=== PATIENT | female | born 2000 | race African-American/Black ===

== ENCOUNTER 2022-06-06 14:29 | Emergency (ER) | payer OTHER, SELFPAY ==
--- NOTE | ~2022-06-06 | XR_ITS ---
EXAMINATION: XR LUMBOSACRAL SPINE CLINICAL INFORMATION: Back pain COMPARISON: None TECHNIQUE: Three views of the lumbosacral spine. FINDINGS: The vertebral bodies and posterior elements are normal. The disc spaces are preserved and the vertebral alignment is normal. The paraspinal soft tissues are normal. XR/XR lumbar spine 2-3V IMPRESSION: Unremarkable lumbar spine radiographs.
[2022-06-06 14:38] VITALS: BP 118/86; PULSE 75; RESP 18; TEMP 36.7; O2SAT 99; BMI 27.4
[2022-06-06] MEDS: Ibuprofen 600 MG TABLET PO (15:59)
[2022-06-06] MEDS: diazePAM 2 MG TABLET PO (17:35)
[2022-06-06] MEDS: predniSONE 20 MG TABLET 60 MG PO (17:35)
[2022-06-06] MEDS: oxyCODONE HCl Immed Release 5 MG TABLET PO (17:35)
--- NOTE | 2022-06-06 18:46 | ED.BACK ---
HPI - Back Pain/Injury General Chief Complaint: Back Pain/Injury Stated Complaint: sciatic nerve pain Time Seen by Provider: 06/06/22 17:08 Source: patient and family (Mother at bedside) Mode of arrival: ambulatory Limitations: no limitations History of Present Illness HPI Narrative: 21-year-old female with a past medical history of sciatica/muscle spasms who has been in therapy for the past 6 months presenting to the ED with mother at bedside with complaints of worsening back pain/pinching sensation radiating down to her bilateral buttocks for the past few hours which started while she was driving back from [place] to [place] a few days ago. She reports she has been taking [id number] medication no symptomatic relief. Mother reports that she has an MRI scheduled for 06/08/2022. She reports that when the pain increases she feels like she is going to have a bowel movement on herself although she is able to hold it and is not having any urinary or bowel incontinence or retention. She denies any fevers, chills, dizziness, headaches, neck pain/stiffness, trouble swallowing or breathing, chest pain or shortness of breath, dyspnea on exertion, orthopnea, palpitations paresthesias, flank pain, abdominal pain, black or bloody stools, nausea/vomiting, recent surgery or epidural procedure, recent spinal tap, recent falls or trauma, history of IV drug use, saddle anesthesia, rashes, dysuria, hematuria, abnormal vaginal discharge or any other symptoms complaints or concerns at this time. MD elicited complaint: back pain and back injury Pertinent past history: prior back pain Onset (ago): day(s) (Past few days worse today) Timing: constant and progressively worsening Severity: severe Pain scale (0-10): 10 Similar Symptoms Previously: Yes Quality: sharp, stabbing, aching and spasming Location: lumbar spine Radiation: buttocks Exacerbating factors: supine positioning, sitting upright, walking and lifting Relieving factors: other (Using all 4 limbs to support herself) Context: unknown Associated symptoms: denies other symptoms Treatments prior to arrival: other (See above) Related Data Previous Rx's Medication Instructions Recorded diazepam 2 mg tablet (Valium) 2 mg PO TID PRN muscle spasm #14 06/06/22 tabs naproxen 500 mg tablet 500 mg PO BID PRN pain #14 tabs 06/06/22 oxycodone 5 mg tablet 5 mg PO Q6H PRN pain #14 tabs 06/06/22 prednisone 20 mg tablet 40 mg PO DAILY rash 5 days #10 tabs 06/06/22 Allergies Allergy/AdvReac Type Severity Reaction Status Date / Time No Known Allergies Allergy Verified 06/06/22 14:37 Review of Systems Review of Systems: Constitutional : No trauma, No Weight loss, No Fever, No Chills, ENT/Mouth : No Hearing loss, No Ear Pain, No Nasal Congestion, No Sinus Pain, No Hoarseness, No sore throat, No Rhinorrhea, No Swallowing Difficulty Cardiovascular : No Chest Pain, No SOB Respiratory : No Cough, No Dyspnea Gastrointestinal : No Nausea, No Vomiting, No Diarrhea, No abdominal Pain, No Hematochezia, No Melena Genitourinary : No Dysuria, No Urinary Frequency, No Hematuria, No Urinary or Bowel Incontinence/retention Musculoskeletal : + Back pain, No neck pain, No joint stiffness, No joint swelling Skin : No Skin Lesions, No rash or signs of infection Neuro : No Weakness, No radiation, No Numbness, No Paresthesias, No headache, no loss of bowel or bladder incontinence, no saddle anesthesia Denies history of IV drug usage. Yes all other systems are reviewed and are negative [facility] Past Medical History Attestation statement: The following information was validated with the patient. Source: old records reviewed, obtained from family and nursing notes reviewed Social History Social History Advance Directives: No Advance Directives Information Provided: No Physical Exam Vital Signs: Vital Signs: Last Vital Signs Temp 98.1 F 06/06/22 14:38 Pulse 75 06/06/22 14:38 Resp 18 06/06/22 14:38 BP 118/86 06/06/22 14:38 Pulse Ox 99 06/06/22 14:38 O2 Del Method 06/06/22 14:38 BMI result Body Mass Index 27.4 vital signs have been reviewed as normal and appeared to be correct. Blood pressure normal. Heart rate normal. Respiration rate normal. Temperature normal. Oxygen saturation normal. Appearance: Alert. Oriented X3. No acute distress. When I 1st walked into the patient's room patient is on all 4 extremities to support herself over the head of the bed reporting this is the most comfortable position. Although she is able to reposition herself so I can examine her. Head: Normal external exam. Normocephalic. Atraumatic. No Ramos signs noted. No raccoon eyes noted Eyes: PERRLA. EOMI. Conjunctiva and sclera normal. Eyelids normal. ENT: EAC normal. TM's Normal. Pharynx normal. Uvula midline. Moist mucous membranes. No trismus noted. No drooling noted. No muffled voice noted. Neck: Normal inspection. Neck supple. FROM. No adenopathy. Thyroid Normal. No meningeal signs. No neck mass noted. CVS: Normal heart rate and rhythm. Heart sound normal. No murmurs noted. Pulses normal throughout. Respiratory: No respiratory distress. Painless inspiration. Breath sounds normal. No wheezes/rales/rhonchi noted. Chest nontender. No accessory muscle usage noted or decreased air movement noted. Abdomen: Soft and nontender. Bowel sounds normal in all 4 quadrants. No distention noted. No organomegaly noted. No visible injury noted. Back: No CVA tenderness. Full range of motion noted. No obvious deformities, or edema. Mild para-spinal muscular tenderness from lumbar region to coccyx. Full ROM in back and lower extremities. 5/5 strength hip extension/flexion, abduction, adduction. Mild Lumbar pain with hip flexion against resistance. Straight leg raise test negative on right; Straight leg raise test negative on left; Reflexes normal ankle and knee bilaterally; EHL motor strength normal bilaterally. No rashes/lesion/induration/fluctuance or signs infection noted. Skin: Skin warm and dry. Normal skin color. Normal skin turgor. No rashes/lesions/lacerations noted. Extremities: No lower extremity edema. Extremities exhibit normal range of motion. Extremities nontender. Neuro: Oriented X 3. No motor deficit. No sensory deficit. Reflexes normal. Patient has a normal steady gait. Course Course Course Narrative: Pt c likely muscular pain, but could be herniated disc. Neuro exam shows no deficits. Not c/w AAA/epidural abscess/dissection.No high risk Hx (Incont, fever, immunosupp, recent surgery/LP, coag, signif trauma, wt loss, puls mass, hx/o Ca, TB, or IVDU) to warrant MRI/CT today. Not c/w Pyelo/UTI/kidney stone/spinal fx. Not cauda equina syndrome. Lumbar spine x-ray negative for any acute processes. DC c meds and f/u. MDM - Back Pain/Injury Medical Records Attestation: I reviewed the patient's medical records. Imaging Data Lumbar spine x-ray: Attestation: I personally reviewed and interpreted this imaging study as follows: Radiologist's impression: FINDINGS: The vertebral bodies and posterior elements are normal. The disc spaces are preserved and the vertebral alignment is normal. The paraspinal soft tissues are normal. XR/XR lumbar spine 2-3V IMPRESSION: Unremarkable lumbar spine radiographs. Discharge Plan Discharge Clinical Impression: Lumbar radiculopathy, Strain of lumbar region Patient Disposition: Home, Self-Care Instructions: Lumbar Radiculopathy (ED), Lower Back Exercises (ED) Prescriptions: New naproxen 500 mg tablet 500 mg PO BID PRN (Reason: pain) Qty: 14 0RF prednisone 20 mg tablet 40 mg PO DAILY 5 Days Qty: 10 0RF oxycodone 5 mg tablet 5 mg PO Q6H PRN (Reason: pain) Qty: 14 0RF Rx Instructions: Partial Fill upon patient request. diazepam [Valium] 2 mg tablet 2 mg PO TID PRN (Reason: muscle spasm) Qty: 14 0RF Referrals: Physician,Nonstaff [Primary Care Provider] - 1 week (your pcp) Stand Alone Forms: Work/School Release
== END 2022-06-06 19:05 | disposition home or self-care (01) ==
PROVIDERS: Emergency Provider Emergency Medicine
DX: M54.16 Radiculopathy, lumbar region (principal); S39.012A Strain of muscle, fascia and tendon of lower back, initial encounter; X58.XXXA Exposure to other specified factors, initial encounter; Y93.9 Activity, unspecified; Y92.9 Unspecified place or not applicable; Y99.9 Unspecified external cause status
CPT/HCPCS: 72100; 99283

== ENCOUNTER 2022-06-17 11:10 | Emergency (ER) | payer OTHER, SELFPAY ==
[2022-06-17 11:17] VITALS: BP 121/71; PULSE 74; RESP 18; TEMP 36.9; O2SAT 98; BMI 27.4
--- NOTE | 2022-06-17 11:49 | ED.BACK ---
HPI - Back Pain/Injury General Chief Complaint: Back Pain/Injury Stated Complaint: back pain Time Seen by Provider: 06/17/22 11:41 Source: patient Mode of arrival: wheelchair Limitations: no limitations History of Present Illness HPI Narrative: 21-year-old female with a past medical history of sciatica/muscle spasm who has been in therapy for the past 6 months presenting to the ED with complaints of acute on chronic back pain radiating to her bilateral lower extremities/buttocks for the past 3 weeks. She was seen here on 06/06/2022 by myself and was given Valium/oxycodone/NSAIDs and steroids and she reports moderate symptomatic relief when she was on all 4 medications although she ran out of her medication and she is in severe pain. She reports that she was supposed to get an MRI at the end of May although when she went to her appointment with the business process specialist they told her that it was an initial appointment and that they could order an MRI at that time although she would have to wait for the actual MRI. Her MRI is scheduled for this Wednesday on 06/19/2022. Then she has a follow-up appointment with the business process specialist on 06/23/2022. She also has called her primary care provider and her primary care provider told her that they cannot prescribe her any narcotics that she would have to go to the emergency department although she was not evaluated by her primary due to she did not make an appointment. I explained to her that she would have the make an appointment so her primary care provider can evaluate her and then prescribed medications that they will not just prescribed medications because she is asking for them. Otherwise she reports it is the same pain that she had when she came here few weeks ago. She denies any fevers, chills, dizziness, headaches, neck pain/stiffness, trouble swallowing or breathing, chest pain or shortness of breath, dyspnea on exertion, orthopnea, palpitations, paresthesias, flank pain, abdominal pain, black or bloody stools, nausea/vomiting, recent surgery or epidural procedure, recent spinal tap, recent falls or trauma, history of IV drug use, saddle anesthesias, rashes, dysuria, hematuria, abnormal vaginal discharge, urinary or bowel incontinence or retention or any other symptoms complaints or concerns at this time. MD elicited complaint: back pain Pertinent past history: prior back pain Onset (ago): week(s) (3 worsened past few days) Timing: constant and progressively worsening Severity: moderate Pain scale (0-10): 10 Quality: sharp, aching, spasming and throbbing Location: lumbar spine Radiation: buttocks, left upper leg, right upper leg, left leg below the knee and right leg below the knee Exacerbating factors: movement, sitting upright and lifting Relieving factors: none Associated symptoms: denies other symptoms Treatments prior to arrival: other (See above) Work related injury: No Related Data Previous Rx's Medication Instructions Recorded diazepam 2 mg tablet (Valium) 2 mg PO TID PRN muscle spasm #14 06/06/22 tabs naproxen 500 mg tablet 500 mg PO BID PRN pain #14 tabs 06/06/22 oxycodone 5 mg tablet 5 mg PO Q6H PRN pain #14 tabs 06/06/22 prednisone 20 mg tablet 40 mg PO DAILY rash 5 days #10 tabs 06/06/22 diazepam 5 mg tablet (Valium) 5 mg PO TID PRN muscle spasm #10 06/17/22 tabs ketorolac 10 mg tablet 10 mg PO Q8H PRN pain #14 tabs 06/17/22 oxycodone 5 mg tablet 5 mg PO Q6H PRN pain #10 tabs 06/17/22 prednisone 10 mg tablet 10 mg PO DAILY #36 tabs 06/17/22 Allergies Allergy/AdvReac Type Severity Reaction Status Date / Time latex Allergy Rash Verified 06/17/22 11:17 Review of Systems Review of Systems: Constitutional : No trauma, No Weight loss, No Fever, No Chills, ENT/Mouth : No Hearing loss, No Ear Pain, No Nasal Congestion, No Sinus Pain, No Hoarseness, No sore throat, No Rhinorrhea, No Swallowing Difficulty Cardiovascular : No Chest Pain, No SOB Respiratory : No Cough, No Dyspnea Gastrointestinal : No Nausea, No Vomiting, No Diarrhea, No abdominal Pain, No Hematochezia, No Melena Genitourinary : No Dysuria, No Urinary Frequency, No Hematuria, No Urinary or Bowel Incontinence/retention Musculoskeletal : + Back pain, No neck pain, No joint stiffness, No joint swelling Skin : No Skin Lesions, No rash or signs of infection Neuro : No Weakness, No radiation, No Numbness, No Paresthesias, No headache, no loss of bowel or bladder incontinence, no saddle anesthesia, Focal weakness, No radiation Denies history of IV drug usage. Yes all other systems are reviewed and are negative [facility] Past Medical History Attestation statement: The following information was validated with the patient. Source: old records reviewed and nursing notes reviewed Physical Exam Vital Signs: Vital Signs: Last Vital Signs Temp 98.4 F 06/17/22 11:17 Pulse 74 06/17/22 11:17 Resp 18 06/17/22 11:17 BP 121/71 06/17/22 11:17 Pulse Ox 98 06/17/22 11:17 O2 Del Method 06/17/22 11:17 BMI result Body Mass Index 27.4 vital signs have been reviewed as normal and appeared to be correct. Blood pressure normal. Heart rate normal. Respiration rate normal. Temperature normal. Oxygen saturation normal. Appearance: Alert. Oriented X3. No acute distress. Head: Normal external exam. Normocephalic. Atraumatic. No Ramos signs noted. No raccoon eyes noted Eyes: PERRLA. EOMI. Conjunctiva and sclera normal. Eyelids normal. ENT: EAC normal. TM's Normal. Pharynx normal. Uvula midline. Moist mucous membranes. No trismus noted. No drooling noted. No muffled voice noted. Neck: Normal inspection. Neck supple. FROM. No adenopathy. Thyroid Normal. No meningeal signs. No neck mass noted. CVS: Normal heart rate and rhythm. Heart sound normal. No murmurs noted. Pulses normal throughout. Respiratory: No respiratory distress. Painless inspiration. Breath sounds normal. No wheezes/rales/rhonchi noted. Chest nontender. No accessory muscle usage noted or decreased air movement noted. Abdomen: Soft and nontender. Bowel sounds normal in all 4 quadrants. No distention noted. No organomegaly noted. No visible injury noted. Back: No CVA tenderness. Full range of motion noted. No obvious deformities, or edema. Mild para-spinal muscular tenderness from lumbar region to coccyx. Full ROM in back and lower extremities. 5/5 strength hip extension/flexion, abduction, adduction. Mild Lumbar pain with hip flexion against resistance. Straight leg raise test negative on right; Straight leg raise test negative on left; Reflexes normal ankle and knee bilaterally; EHL motor strength normal bilaterally. No rashes/lesion/induration/fluctuance or signs infection noted. Skin: Skin warm and dry. Normal skin color. Normal skin turgor. No rashes/lesions/lacerations noted. Extremities: No lower extremity edema. Extremities exhibit normal range of motion. Extremities nontender. Neuro: Oriented X 3. No motor deficit. No sensory deficit. Reflexes normal. Patient has a normal steady gait. Course Course Course Narrative: Pt c likely muscular pain, but could be herniated disc. Neuro exam shows no deficits. Not c/w AAA/epidural abscess/dissection.No high risk Hx (Incont, fever, immunosupp, recent surgery/LP, coag, signif trauma, wt loss, puls mass, hx/o Ca, TB, or IVDU) to warrant MRI/CT today. Not c/w Pyelo/UTI/kidney stone/spinal fx. Not cauda equina syndrome. Imaging not currently indicated. I explained to the patient that she should follow-up with painter and decorator apprentice or her primary care provider to refer her for physical therapy. She reports she does have have her MRI this Wednesday on 06/19/2022 and follow-up with the business process specialist on 06/23/2022. I explained to her if this does not occur she should follow-up with her primary for further evaluation treatment and meds that she cannot continue coming to the emergency department for pain meds and steroids and she understands this therefore will DC with a short course today and instructions follow-up with PCP/pain management or her business process specialist. Patient understands agrees with this plan. MDM - Back Pain/Injury Medical Records Attestation: I reviewed the patient's medical records. Discharge Plan Discharge Clinical Impression: Strain of lumbar region, Lumbar radiculopathy Patient Disposition: Home, Self-Care Instructions: Lumbar Radiculopathy (ED), Lower Back Exercises (ED) Prescriptions: New ketorolac 10 mg tablet 10 mg PO Q8H PRN (Reason: pain) Qty: 14 0RF Rx Instructions: First dose given by IM and patient tolerated well diazepam [Valium] 5 mg tablet 5 mg PO TID PRN (Reason: muscle spasm) Qty: 10 0RF oxycodone 5 mg tablet 5 mg PO Q6H PRN (Reason: pain) Qty: 10 0RF Rx Instructions: Partial Fill upon patient request. prednisone 10 mg tablet 10 mg PO DAILY Qty: 36 0RF Rx Instructions: Take 8 tablets on day 1 then take 7 tablets on day 2 then take 6 tablets on day 3 then take 5 tablets on day 4 then take 4 tablets on day 5 then take 3 tablets on day 6 then take 2 tablets on day 7 then take 1 tablet on day 8 No Action naproxen 500 mg tablet 500 mg PO BID PRN (Reason: pain) Qty: 14 0RF prednisone 20 mg tablet 40 mg PO DAILY 5 Days Qty: 10 0RF diazepam [Valium] 2 mg tablet 2 mg PO TID PRN (Reason: muscle spasm) Qty: 14 0RF oxycodone 5 mg tablet 5 mg PO Q6H PRN (Reason: pain) Qty: 14 0RF Rx Instructions: Partial Fill upon patient request. Referrals: [facility] [Provider Group] (Call to make a follow-up appointment within 1-2 weeks) [facility] [Provider Group] - 1 week (Call to make a follow-up appointment within 1-2 weeks) [facility] [Provider Group] (Call to make a follow-up appointment within 1-2 weeks) Stand Alone Forms: Work/School Release Print Language: Cymraes
[2022-06-17] MEDS: Ketorolac Tromethamine 60 MG/2 ML VIAL IM (11:53)
== END 2022-06-17 12:24 | disposition home or self-care (01) ==
PROVIDERS: Emergency Provider Internal Medicine
DX: M54.16 Radiculopathy, lumbar region (principal); S39.012A Strain of muscle, fascia and tendon of lower back, initial encounter; X58.XXXA Exposure to other specified factors, initial encounter; Y93.9 Activity, unspecified; Y92.9 Unspecified place or not applicable; Y99.9 Unspecified external cause status
CPT/HCPCS: 96372; 99283; 99284; J1885

== ENCOUNTER → 2022-09-16 11:29 | Outpatient (BNVA) | payer OTHER, SELFPAY | PROVIDERS: Visit Provider Anesthesiology | DX: M47.816 Spondylosis without myelopathy or radiculopathy, lumbar region (principal); G89.4 Chronic pain syndrome | CPT/HCPCS: 99202 ==

== ENCOUNTER 2022-11-03 06:32 | Outpatient (REF) | payer SELFPAY ==
--- NOTE | ~2022-11-03 | FL_ITS ---
EXAMINATION: XR FLUOROSCOPY WITH IMAGES CLINICAL INFORMATION: M47.816 - Spondylosis without myelopathy or radiculopathy, lumbar region COMPARISON: Lumbar radiographs 06/06/2022 TECHNIQUE: Fluoroscopy Supervised By: Dr. Fred Cardona. Fluoroscopy Time: 0.6 minutes. Cumulative Dose: 10.5 mGy. DAP: 2.86 Gycm2. Images: 7. FINDINGS: There are spinal needles overlying the bilateral outer L3, L4, and L5 neural foramen. There is contrast seen in the respective nerve sheaths. Some early transforaminal epidural extension is suggested. No visible vascular communication. Vertebral jewelry piercing overlies mid lumbar region. FL/FL guidance in treatment room IMPRESSION: Fluoroscopy for pain management procedures.
[2022-11-03 15:11] LABS: UPreg QC Valid YES; Urine Pregnancy NEGATIVE (NEGATIVE)
== END 2022-11-03 06:33 | disposition home or self-care (01) ==
LOC: CF 06:32
PROVIDERS: Visit Provider Anesthesiology
DX: M47.816 Spondylosis without myelopathy or radiculopathy, lumbar region (principal); G89.4 Chronic pain syndrome; Z32.02 Encounter for pregnancy test, result negative
CPT/HCPCS: 64493; 64494; 81025

== ENCOUNTER → 2022-11-05 08:06 | Outpatient (BNVA) | payer OTHER, SELFPAY | PROVIDERS: PCP Hospitalist; Visit Provider Anesthesiology | DX: Z13.89 Encounter for screening for other disorder (principal) ==

== ENCOUNTER → 2022-12-14 08:43 | Outpatient (BNVA) | payer OTHER, SELFPAY | PROVIDERS: PCP Hospitalist; Visit Provider Anesthesiology | DX: Z13.89 Encounter for screening for other disorder (principal) ==

== ENCOUNTER 2023-01-08 06:51 | Day surgery (SDC) | payer OTHER, SELFPAY ==
[2023-01-04 15:24] VITALS: BMI 28.5
--- NOTE | 2023-01-07 12:09 | P.CONAN_ITS ---
Documented by User: Shira Ayon NP 01/07/23 12:09 HPI - Anesthesia Eval Consult details Narrative: 22yo F for Bilateral Therapeutic L3-L4-DRL5 Medial Branch Block [facility] Active Problems Active Problems: All Active Problems (Updated 12/23/22 @ 14:30 by Isabella Pizano NP) Spondylosis without myelopathy or radiculopathy, lumbar region (Acute) Chronic pain syndrome (Acute) Normal physical exam (Acute) Depression (Acute) Vertigo (Acute) Anxiety (Acute) Past Medical History Medical History (Updated 12/23/22 @ 14:30 by Isabella Pizano NP) Anxiety Depression Vertigo Surgical History Surgical History (Updated 01/08/23 @ 07:22 by Oly Benitez RN) Hx of tonsillectomy Social History Social History Household Members: Family Housing: Apartment Alcohol intake: never Patient Tobacco Use Status: Former Tobacco user e-Cigarette/Vaping Use: Never Used Are you DNR?: No Advance Directives: No Advance Directives Information Provided: Yes Nutrition Risks: No Nutritional Risk FDLMP: december 21 Current occupational status: employed Meds Allergies Allergy/AdvReac Type Severity Reaction Status Date / Time latex Allergy Rash Verified 01/08/23 07:22 Home Medications Medication Instructions Recorded Confirmed Last Taken Type hydroxyzine HCl 25 mg tablet 25 mg PO BEDTIME 12/23/22 01/04/23 Unknown History meclizine 25 mg tablet (Dramamine 25 mg PO DAILY PRN Vertigo 12/23/22 01/04/23 Unknown History (meclizine)) Exam Exam Date and Time: January 07, 2023 1209 Height,Weight and Vital Signs: Height 5 ft 4 in Weight 75.296 kg Assessment and Plan Assessment Anesthesia Assessment: Chart Reviewed Documented by User: Toyin Mehta MD 01/08/23 07:31 [facility] Past Medical History Medical History (Updated 12/23/22 @ 14:30 by Isabella Pizano NP) Anxiety Depression Vertigo Family History Family history of problems with anesthesia: No Surgical History Surgical History (Updated 01/08/23 @ 07:22 by Oly Benitez RN) Hx of tonsillectomy History of Problems with Anesthesia: No Social History Social History Household Members: Family Housing: Apartment Alcohol intake: never Patient Tobacco Use Status: Former Tobacco user e-Cigarette/Vaping Use: Never Used Are you DNR?: No Advance Directives: No Advance Directives Information Provided: Yes Nutrition Risks: No Nutritional Risk FDLMP: december 21 Current occupational status: employed Meds Allergies Allergy/AdvReac Type Severity Reaction Status Date / Time latex Allergy Rash Verified 01/08/23 07:22 Home Medications Medication Instructions Recorded Confirmed Last Taken Type hydroxyzine HCl 25 mg tablet 25 mg PO BEDTIME 12/23/22 01/04/23 Unknown History meclizine 25 mg tablet (Dramamine 25 mg PO DAILY PRN Vertigo 12/23/22 01/04/23 Unknown History (meclizine)) Exam Airway Mallampati Class: II TM Dist: >3cm Neck ROM: Full Heart: rrr Lungs: cta Assessment and Plan Assessment Anesthesia Assessment: Anesthesia Plan Discussed and Chart Reviewed Final Anesthetic Review Family History of Problems with Anesthesia: No History of Problems with Anesthesia: No NPO: Yes ASA Class: II Final Preanesthetic Review: No Changes in Pt Med Stat, Meds/Allgs Chart Reviewed and Consent Obtained/Reviewed Patient Risk: Intermediate Procedure Risk: Intermediate Anesthetic Plan Anesthetic Plan: MAC: Disposition: Standard PACU
--- NOTE | ~2023-01-08 | FL_ITS ---
EXAMINATION: XR FLUOROSCOPY WITH IMAGES CLINICAL INFORMATION: Pain. Therapeutic medial branch block lumbar spine. COMPARISON: Lumbar radiographs 06/06/2022 TECHNIQUE: Fluoroscopy Supervised By: Dr. Fred Cardona. Fluoroscopy Time: 0.5 minutes. Cumulative Dose: 7.41 mGy. DAP: 2.02 Gycm2. Images: 6. FINDINGS: There are spinal needles overlying the bilateral outer L3, L4, and L5 neural foramen. There is contrast seen in the respective nerve sheaths. Some early transforaminal epidural extension is suggested. No visible vascular communication. FL/FL guidance in OR IMPRESSION: Fluoroscopy for pain management procedures.
[2023-01-08] MEDS: Lactated Ringers 1,000 ML 100 ML IVCONT (06:54)
[2023-01-08 07:13] LABS: UPreg QC Valid YES; Urine Pregnancy NEGATIVE (NEGATIVE)
[2023-01-08 07:19] VITALS: BP 119/69; PULSE 86; RESP 18; TEMP 36.5; O2SAT 99
--- NOTE | 2023-01-08 07:34 | P.HPSUR_ITS ---
Pre-Procedural Eval Section A Date of Service: 01/08/23 The patient is an INPATIENT: No Changes since office visit: Yes Patient answered all questions The History & Physical has been completed within 30 days and I have reviewed it.: No Section B Chief Complaint: Spondylosis without myelopathy or radiculopathy, l Details of Present Illness: as above Relevant Family History (Specify if Yes): No Relevant Social History: None Present Medications: None Medical History: No relevant PMH History of Previous Operations: No relevant previous surgery Allergies: Allergies Allergy/AdvReac Type Severity Reaction Status Date / Time latex Allergy Rash Verified 01/08/23 07:22 Review of Systems Sugical H&P ROS: Negative: Constitution, Cardiovascular, Respiratory, Neurolog ical, Psychiatric, Hem-Onc, Allergic/Immunologic, Gastrointestinal, Genitourinary, Musculoskeletal, Integumentary, Endocrine and Eyes/Ears/Nose/Throat Exam Surgical H&P Exam: Normal: HEENT, Normal: Heart, Normal: Lungs, Normal: Extremities, Normal: Abdomen, Normal: Skin and Normal: Neurological Plan Diagnosis/Plan: Unchanged I have reviewed the history and physical and performed a pertinent physical examination on my patient. No changes have occurred unless specified. Time Spent With Patient Time: Total time managing care of this patient today ____ minutes.
[2023-01-08 08:28] VITALS: BP 106/64; PULSE 86; RESP 16; TEMP 36.5; O2SAT 100
--- NOTE | 2023-01-08 08:31 | P.BOP_ITS ---
Brief Operative Note Date of Service: 01/08/23 Pre-op diagnosis: Spondylosis lumbar without myelopathy or radiculopathy Post-op diagnosis: same Procedure: L3- L4- L5 B/l MBBs Surgeon: Fred Cardona MD Anesthesia: MAC Was an Group [employer] Testing used for this Procedure?: No Estimated blood loss (mL): 1 Pathology: none sent Condition: stable Disposition: PACU
--- NOTE | 2023-01-08 08:34 | P.OP_ITS ---
Operative Note Operative Note Date of Service: 01/08/23 Narrative: Therpeutic bilateral medial branch block L3, L4, dorsal ramus L5.? ?Informed consent was explained to the patient. All questions were explained and? answered.? The patient was taken inside the operating room where she was positioned prone on the operating table. ASA m-r applied and the patient was deeply sedated.? Time-out was performed delineating correct site, side, the nature of the procedure, patient's allergy, preoperative antibiotic if needed.? All operating room staff were participating in OR time-out procedure. ?The lower back was prepped with ChloraPrep and draped with sterile towels.? Sterilely draped C-arm was brought over the operating field and sq picture of L4-and L5 vertebra and S1 AREA were delineated on the screen.? Point of interest were delineated as connection of superior articular process of L4 and L5 vertebra bilaterally with corresponding transverse processes as well as connection of the sacral alae bilaterally with superior articular process of S1.? The projection of the point of interest to the skin were injected with the small amount of local anesthetic lidocaine 2% 1-1.5 cc.? After that 22 gauge 3- 1/2 inch spinal needle was driven sequentially to the points of interest in tunnel vision fashion. After needles gently contacted the bone at the point of interests the needle was injected with small amount of the contrast.? The injection of the contrast did not demonstrate any intravascular or intrathecal spread of the contrast.? After that injection of the? ropivacaine 0.5%-1cc mixed with kenalog was performed at each needle location.?total dose of ropivacaine was 6 mls, total dose of kenalog evenly divided between 6 sites was 80 mg. Upon completion of the injections? needle was? removed and sterile Band-Aids were applied.? The? patient was awaken, taken outside of the operating room to recovery room where she recovered uneventfully.? She went home without immediate complications.
[2023-01-08 08:43] VITALS: BP 108/55; PULSE 89; RESP 16; O2SAT 100
[2023-01-08 08:58] VITALS: BP 120/75; PULSE 86; RESP 16; TEMP 36.5; O2SAT 100
== END 2023-01-08 09:16 | disposition home or self-care (01) ==
PROVIDERS: Nurse Practitioner; PCP Hospitalist; Visit Provider Anesthesiology
PROC: (CPT 64493; principal; 2023-01-08 08:20)
DX: M47.816 Spondylosis without myelopathy or radiculopathy, lumbar region (principal); G89.4 Chronic pain syndrome; Z83.3 Family history of diabetes mellitus; H81.10 Benign paroxysmal vertigo, unspecified ear; F32.A Depression, unspecified; F41.1 Generalized anxiety disorder; Z79.899 Other long term (current) drug therapy; Z91.040 Latex allergy status; Z87.891 Personal history of nicotine dependence
CPT/HCPCS: 64493; 64494; 81025; J2250; J2795; J3010; J3301; Q9965; Q9967

== ENCOUNTER → 2023-03-29 08:34 | Outpatient (BNVA) | payer OTHER, SELFPAY | PROVIDERS: PCP Nurse Practitioner Family; Visit Provider Nurse Practitioner Family ==

== ENCOUNTER 2023-06-07 14:24 | Emergency (ER) | payer OTHER, SELFPAY ==
--- NOTE | ~2023-06-07 | XR_ITS ---
EXAMINATION: XR CHEST CLINICAL INFORMATION: Chest pain COMPARISON: None available. TECHNIQUE: Frontal view of the chest was obtained. 3:15 PM FINDINGS: No significant abnormality is noted involving the heart, lungs, mediastinum, bony thorax or soft tissues. XR/XR chest 1V IMPRESSION: Unremarkable examination.
--- NOTE | 2023-06-07 14:27 | ECG_ITS ---
Test Reason : CP Blood Pressure : / mmHG Vent. Rate : 063 BPM Atrial Rate : 063 BPM P-R Int : 124 ms QRS Dur : 074 ms QT Int : 402 ms P-R-T Axes : -02 049 038 degrees QTc Int : 411 ms Normal sinus rhythm with sinus arrhythmia Normal ECG No previous ECGs available Referred By: Cris Majano Electronically Signed By:MADONNA CHEN
[2023-06-07 15:20] VITALS: BP 134/74; PULSE 63; RESP 18; TEMP 36.9; O2SAT 99; BMI 28.2
--- NOTE | 2023-06-07 15:21 | ED.GENADULT ---
HPI - General Adult General Chief complaint: Chest Pain Stated complaint: chest pain Time Seen by Provider: 06/07/23 22:00 Source: patient Mode of arrival: ambulatory Limitations: no limitations History of Present Illness HPI narrative: Patient 22 years old with no significant past medical history with history of anxiety and depression but lately been stable mood drinks caffeine notice heart fluttering for last 2 days off and on lasting only for few seconds no loss of consciousness no shortness of breath Related Data Home Medications Medication Instructions Recorded Confirmed No Known Home Meds 03/29/23 03/29/23 Allergies Allergy/AdvReac Type Severity Reaction Status Date / Time latex Allergy Rash Verified 03/29/23 08:35 Review of Systems Review of Systems: Yes all other systems are reviewed and are negative [facility] Past Medical History Medical History Anxiety Depression Vertigo Surgical History Hx of tonsillectomy Social History Social History Household Members: Family Housing: Apartment Alcohol intake: never Patient Tobacco Use Status: Former Tobacco user e-Cigarette/Vaping Use: Never Used Current occupational status: employed Physical Exam ED Vital Signs: Vital Signs - 24 hr 06/07/23 15:20 06/07/23 22:01 Temperature 98.4 F 98.6 F Pulse Rate 63 58 Respiratory Rate 18 20 Blood Pressure 134/74 117/83 Pulse Oximetry 99 100 Oxygen Delivery Method Room Air Room Air BMI result Body Mass Index 28.2 Appearance: Alert. Oriented X3. No acute distress. Eyes: PERRLA, No Nystagmus ENT: Pharynx normal. Oral Mucosa moist Neck: Normal inspection. Neck supple. CVS: Normal heart rate and rhythm. Pulses normal. occasional PACs Respiratory: No respiratory distress. Equal air entry bilateral, no wheezing/rales/rhonchi Abdomen: Soft and nontender. Bowel sounds are present, no mass palpable, no CVA tenderness Skin: Skin warm and dry. Normal skin color. Normal skin turgor. Extremities: No lower extremity edema. No calf tenderness Neuro: Oriented X 3. No motor deficit. Course Course Course Narrative: This is an RME: Additional HPI, ROS, PE not included below will be deferred to primary provider. 22-year-old female presents with a week of irregular heartbeat, she states she feels like her heart is fluttering intermittently. No chest pain or shortness of breath. PERC - Plan labs, EKG Medical Decision Making Differential Diagnosis Differential Diagnoses: The differential diagnosis associated with the presentation includes Cardiac arrhythmia/atrial fibrillation/flutter/PAC Lab Data MDM Lab Attestation statement: I reviewed the patient's lab results. 06/07/23 16:30 06/07/23 16:30 Labs: Lab Results 06/07/23 06/07/23 06/07/23 Range/Units 16:27 16:30 16:30 WBC 6.4 (4.8-10.8) X10*3/uL RBC 4.67 (4.20-5.50) X10*6/uL Hgb 13.3 (12.0-16.0) g/dl Hct 40.3 (37.0-47.0) % MCV 86.3 (80.0-98.0) fL MCH 28.5 (27.0-33.0) pg MCHC 33.0 (31.0-35.0) g/dl RDW 12.0 (11.0-16.0) % Plt Count 293 (160-400) X10*3/uL MPV 11.3 (9.4-12.3) fL Immature Gran % (Auto) 0.2 (0.0-0.4) % Neut % (Auto) 51.4 (45-73) % Lymph % (Auto) 41.2 H (20-40) % [place] % (Auto) 6.1 (2-11) % Eos % (Auto) 0.8 (0-4) % Baso % (Auto) 0.3 (0-2) % Lymph # (Auto) 2.6 (1.2-4.9) X10*3/uL [place] # (Auto) 0.4 (0.1-1.2) X10*3/uL Eos # (Auto) 0.1 (0.0-0.4) X10*3/uL Baso # (Auto) 0.0 (0.0-0.2) X10*3/uL Abs Immat Gran (auto) 0.01 (0.00-0.03) X10*3/uL Absolute Neuts (auto) 3.3 (2.0-8.3) x10*3/uL Absolute Nucleated RBC 0.000 (0.0-0.012) X10*3/uL Nucleated RBC % (auto) 0.0 (0.0-0.2) /100WBC Sodium 142 (135-145) mmol/L Potassium 4.0 (3.3-5.1) mmol/L Chloride 110 H (96-108) mmol/L Carbon Dioxide 23 (22-29) mmol/L Anion Gap 13 (12-20) BUN 11 (9-16) mg/dL Creatinine 0.74 (0.5-1.4) mg/dL Estim Creat Clear Calc 117.9 Estimated GFR > 60 Random Glucose 86 (60-115) mg/dL Calcium 9.7 (8.4-10.2) mg/dL Magnesium 2.0 (1.6-2.6) mg/dL Total Bilirubin 0.6 (0.0-1.0) mg/dL AST 18 (5-31) U/L ALT 14 (0-31) U/L Alkaline Phosphatase 56 (39-117) U/L Troponin I High Sens (<3.5-17.0) ng/L B-Natriuretic Peptide (<100) pg/mL Total Protein 7.4 (6.5-8.0) g/dL Albumin 4.4 (3.5-5.0) g/dL Urine Color Urine Appearance Urine pH (5.0-9.0) Ur Specific [place] (1.005-1.025) Urine Protein (Neg-Trace) mg/dL Urine Glucose (UA) (Negative) mg/dL Urine Ketones (Negative) mg/dL Urine Blood (Negative) Urine Nitrite (Negative) Ur Leukocyte Esterase (Negative) Urine RBC (0-2) /HPF Urine WBC (0-5) /HPF Ur Squamous Epith Cells (0-2) /HPF Urine Bacteria (None Seen) Hyaline Casts (0-2) /LPF COVID-19 ([facility]) Negative (Negative) COVID-19 Clin Com See Note 06/07/23 06/07/23 06/07/23 Range/Units 16:30 16:30 19:16 WBC (4.8-10.8) X10*3/uL RBC (4.20-5.50) X10*6/uL Hgb (12.0-16.0) g/dl Hct (37.0-47.0) % MCV (80.0-98.0) fL MCH (27.0-33.0) pg MCHC (31.0-35.0) g/dl RDW (11.0-16.0) % Plt Count (160-400) X10*3/uL MPV (9.4-12.3) fL Immature Gran % (Auto) (0.0-0.4) % Neut % (Auto) (45-73) % Lymph % (Auto) (20-40) % [place] % (Auto) (2-11) % Eos % (Auto) (0-4) % Baso % (Auto) (0-2) % Lymph # (Auto) (1.2-4.9) X10*3/uL [place] # (Auto) (0.1-1.2) X10*3/uL Eos # (Auto) (0.0-0.4) X10*3/uL Baso # (Auto) (0.0-0.2) X10*3/uL Abs Immat Gran (auto) (0.00-0.03) X10*3/uL Absolute Neuts (auto) (2.0-8.3) x10*3/uL Absolute Nucleated RBC (0.0-0.012) X10*3/uL Nucleated RBC % (auto) (0.0-0.2) /100WBC Sodium (135-145) mmol/L Potassium (3.3-5.1) mmol/L Chloride (96-108) mmol/L Carbon Dioxide (22-29) mmol/L Anion Gap (12-20) BUN (9-16) mg/dL Creatinine (0.5-1.4) mg/dL Estim Creat Clear Calc Estimated GFR Random Glucose (60-115) mg/dL Calcium (8.4-10.2) mg/dL Magnesium (1.6-2.6) mg/dL Total Bilirubin (0.0-1.0) mg/dL AST (5-31) U/L ALT (0-31) U/L Alkaline Phosphatase (39-117) U/L Troponin I High Sens < 2.7 (<3.5-17.0) ng/L B-Natriuretic Peptide 18 (<100) pg/mL Total Protein (6.5-8.0) g/dL Albumin (3.5-5.0) g/dL Urine Color [place] A Urine Appearance Turbid Urine pH 8.5 (5.0-9.0) Ur Specific [place] 1.025 (1.005-1.025) Urine Protein 30 (1+) H (Neg-Trace) mg/dL Urine Glucose (UA) Negative (Negative) mg/dL Urine Ketones Negative (Negative) mg/dL Urine Blood Large (3+) H (Negative) Urine Nitrite Negative (Negative) Ur Leukocyte Esterase Small (1+) H (Negative) Urine RBC >20 H (0-2) /HPF Urine WBC 6-10 H (0-5) /HPF Ur Squamous Epith Cells 0-2 (0-2) /HPF Urine Bacteria None Seen (None Seen) Hyaline Casts 0-2 (0-2) /LPF COVID-19 ([facility]) (Negative) COVID-19 Clin Com Independent Interpretation I performed an independent interpretation of an: EKG Interpretation: Notes sinus rhythm with heart rate of 63 beats per minute with premature atrial complexes no acute ST-T no acute ischemic Discharge Plan Discharge Clinical Impression: Premature beats Patient Disposition: Home, Self-Care Instructions: Premature Atrial Contractions (ED) Additional Instructions: Drink plenty of fluids, avoid caffeine Follow with PCP if any concerns/ passing-out episode/dizziness Prescriptions: No Action No Known Home Meds
[2023-06-07 16:41] LABS: MANUAL DIFF FLAG NO
[2023-06-07 16:52] LABS: Basophils Percent Auto 0.3 % (0-2); Eosinophils Absolute Auto 0.1 X10*3/uL (0.0-0.4); Eosinophils Percent Auto 0.8 % (0-4); Hematocrit 40.3 % (37.0-47.0); Hemoglobin 13.3 g/dl (12.0-16.0); Imm Gran Abs Auto 0.01 X10*3/uL (0.00-0.03); Imm Gran Pct Auto 0.2 % (0.0-0.4); Lymphocytes Absolute Auto 2.6 X10*3/uL (1.2-4.9); Lymphocytes Percent Auto 41.2 % (20-40); Mean Corpuscular Hemoglobin 28.5 pg (27.0-33.0); Mean Corpuscular Volume 86.3 fL (80.0-98.0); Mean Platelet Volume 11.3 fL (9.4-12.3); Monocytes Absolute Auto 0.4 X10*3/uL (0.1-1.2); Monocytes Percent Auto 6.1 % (2-11); Neutrophils Absolute Auto 3.3 x10*3/uL (2.0-8.3); Neutrophils Percent Auto 51.4 % (45-73); Platelet Count 293 X10*3/uL (160-400); Red Blood Count 4.67 X10*6/uL (4.20-5.50); White Blood Count 6.4 X10*3/uL (4.8-10.8)
[2023-06-07 17:02] LABS: Alanine Aminotransferase 14 U/L (0-31); Albumin Level 4.4 g/dL (3.5-5.0); Alkaline Phosphatase 56 U/L (39-117); Anion Gap 13 (12-20); Aspartate Amino Transferase 18 U/L (5-31); Bilirubin Total 0.6 mg/dL (0.0-1.0); Blood Urea Nitrogen 11 mg/dL (9-16); Calcium 9.7 mg/dL (8.4-10.2); Carbon Dioxide 23 mmol/L (22-29); Chloride 110 mmol/L (96-108); Creatinine Clr Calc Pharmacy 117.9; Estimated Glomerular Filt Rate > 60; Glucose Random 86 mg/dL (60-115); Sodium 142 mmol/L (135-145); Total Protein 7.4 g/dL (6.5-8.0)
[2023-06-07 17:02] LABS: COVID-19 Test Negative (Negative); IDNOW Serial# BCCEAD1C
[2023-06-07 17:08] LABS: B Type Natriuretic Peptide 18 pg/mL (<100)
[2023-06-07 17:18] LABS: Troponin-I High Sensitivity < 2.7 ng/L (<3.5-17.0)
[2023-06-07 19:33] LABS: Appearance Urine Turbid; Color Urine Orange; Glucose Urine UA Negative (Negative); Leukocyte Esterase Urine Small (1+) (Negative); Nitrite Urine Negative (Negative); PH 8.5 (5.0-9.0); Specific Gravity - Urine 1.025 (1.005-1.025); UMIC TRIGGER UACC YES; Urine Blood Large (3+) (Negative); Urine Ketones Negative (Negative); Urine Protein 30 (1+) mg/dL (Neg-Trace)
[2023-06-07 19:36] LABS: Bacteria Urine None Seen (None Seen); Hyaline Casts Urine 0-2 /LPF (0-2); RBC Urine >20 /HPF (0-2); Squamous Epithelial Cell Urine 0-2 /HPF (0-2); UACC Culture Trigger YES
[2023-06-07 22:01] VITALS: BP 117/83; PULSE 58; RESP 20; TEMP 37; O2SAT 100
== END 2023-06-07 22:18 | disposition home or self-care (01) ==
PROVIDERS: Physician Assistant; Emergency Provider Internal Medicine
DX: I49.1 Atrial premature depolarization (principal); Z20.822 Contact with and (suspected) exposure to COVID-19; Z87.891 Personal history of nicotine dependence
CPT/HCPCS: 71045; 80053; 81001; 83735; 83880; 84484; 85025; 87086; 87635; 93005; 99283; 99285

== ENCOUNTER → 2023-06-07 14:27 | Outpatient (BNV) | payer OTHER, SELFPAY | PROVIDERS: Emergency Provider Internal Medicine; Visit Provider Internal Medicine | DX: R07.9 Chest pain, unspecified (principal) | CPT/HCPCS: 93010 ==

== ENCOUNTER 2023-11-15 17:08 | Outpatient (AMB) | payer OTHER, SELFPAY ==
--- NOTE | 2023-11-15 17:07 | MHC.PC.OV ---
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: No Accompanied by: Self / Same As Patient Allergies latex Allergy (Verified 11/15/23 17:15) Rash Medication List - Last Reconciled 11/15/23 by Mackenzie Newton CNP No Known Home Meds Tobacco use date assessed: 11/15/23 Dental Screening Dental Screen Date: 11/15/23 Did you have a dental visit in the last 12 months?: Yes Did you have a dental problem in the last 6 months where you did not have access to dental care?: No Was dental information given to patient?: Patient has dentist HPI HPI Comments History of Present Illness Details 23-year-old female presents for transfer of care She has history of anxiety and depression. She was on hydroxyzine for anxiety but not currently not on psychotropic medications Her former PCP is HOANG who is no longer with the practice. Her last office visit was in December 2022 She had blood work done in May 2023 She notes that she noticed enlarged painless anterior neck 3 weeks ago and her mother informed the patient that the patient has goiter She reports difficulty swallowing with choking at times, no pain with swallowing She notes that her mother has hypothyroidism and h/o goiter that was removed She reports frequent fatigue, heat intolerance, generalized itchy skin, and occasional palpitations. She also reports recent weight loss of 6 lb She sees a therapist weekly. She notes controlled anxiety and depression symptoms. 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 Kashif Wiseman, Gabriella Ugalde, Shay Edouard and colleagues, with an educational isaias from [employer]. Review of Systems Const Details: Const Denies chills, Reports fatigue, Denies fever(s), Denies headache(s) and Denies weakness ENT Denies dizziness and Denies headache(s) Card Denies chest pain, Denies lightheadedness, Denies dyspnea and Denies other (Palpitations) Resp Denies cough, Denies dyspnea, Denies wheezing and Denies other ( shortness of breath) GI Denies abdominal pain, Denies melena, Denies hematochezia, Denies change in bowel habits, Denies dyspepsia and Denies nausea Denies hematuria and Denies dysuria Musc Denies abnormal gait, Denies myalgias, Denies arthralgias, Denies numbness and Denies tingling Skin/Breast Denies rash, Denies unusual bruising and Denies wounds Neuro Denies abnormal gait, Denies dizziness, Denies headache(s), Denies memory loss, Denies numbness, Denies Sensory deficit (Neuro), Denies tingling and Denies weakness Psych Denies anxiety, Denies depression, Denies memory loss Endo Denies cold intolerance, Reports fatigue, Reports heat intolerance, Denies polydipsia and Denies polyuria Aller/Immun Denies wheezing Physical exam (Primary Care) Vital Signs: Last Vital Signs Temp 97.8 F 11/15/23 17:09 Pulse 116 H 11/15/23 17:09 Resp 13 11/15/23 17:09 BP 126/70 11/15/23 17:09 Pulse Ox 99 11/15/23 17:09 Oxygen Delivery Method Room Air 11/15/23 17:09 BMI result Body Mass Index 24.0 Tobacco/Smoking Status: Tobacco use Status Tobacco use date assessed 12/23/22 12/23/22 14:26 Patient Tobacco Use Status Former Tobacco user 03/18/23 13:13 e-Cigarette/Vaping Use Never Used 12/23/22 14:26 Thrive Assessment: Date of Thrive Assessment Date Thrive assessed 12/23/22 12/23/22 14:58 Const Other: General: no acute distress and well developed Nutritional Appearance: well nourished Orientation/consciousness: patient oriented x3 [facility] Head: Yes normocephalic and Yes atraumatic Enlarged thyroid gland measuring approx 11.5 cm x 5.5 cm Eyes General: appearance normal, both eyes and all related structures Pupils: Equal, round and reactive pupils present EOM: EOMs intact bilaterally Resp Effort & Inspection: normal respiratory effort Auscultation: clear to auscultation bilaterally Cardio Rate: regular rate Rhythm: regular rhythm Heart sounds: S1 normal heart sound present, S2 normal heart sound present, no gallops, no murmurs and no rubs GI Palpation (GI): No Abdominal aortic bruit present, Soft to palpation, nontender, No hepatosplenomegaly present and No Rebound tenderness present Auscultation: normal bowel sounds General: Yes no CVA tenderness Back/Spine/Pelvis Back: no CVA tenderness Cervical Spine: cervical ROM normal and No Cervical spine tenderness Thoracic/Lumbar Spine: thoraco-lumbar ROM normal, No pain with thoraco-lumbar ROM, No thoracic spinal tenderness and No lumbar spinal tenderness Extrem General: Yes normal to inspection, No edema and No calf tenderness Skin General: warm and dry. Normal skin color. Normal skin turgor Lesions: no lesions Rashes: no rashes Trauma: no lacerations or abrasions Wounds: no wounds Nails: normal Neuro General: patient oriented x3, gait normal and no focal neuro deficit Cranial nerves: Yes Equal, round and reactive pupils present Cognition (Neuro): normal cognition Gait exam (Neuro): Normal gait present Sensory Exam: No Sensory deficit (Neuro) Psych Appearance: grossly normal Affect: normal affect Attitude: cooperative Thought process: Normal thought process present Assessment and Plan Assessment & Plan (1) Enlarged thyroid: Code(s): E04.9 - Nontoxic goiter, unspecified Plan: Three weeks of painless enlarged thyroid gland Reports frequent fatigue, heat intolerance, generalized itchy skin, occasional palpitations and dysphagia, and recent weight loss of 6 lb Enlarged thyroid gland measuring approx 11.5 cm x 5.5 cm Likely hyperthyroidism Routine labs, including TSH/T4 ordered Will also check TPO AB Stat thyroid ultrasound ordered. She will be contacted to schedule an appointment May use hydrocortisone cream for itching Advised to get fasting blood work done tomorrow morning Follow-up in 1 week or return sooner with worsening or new symptoms May referred to endocrinology May also order metoprolol Verbalized understanding and agreed with the treatment plan (2) Anxiety: Code(s): F41.9 - Anxiety disorder, unspecified Plan: Reports controlled anxiety and depression symptoms Declines medication treatment at this time Continue to follow-up with therapist as planned Routine exercise encouraged Follow-up with worsening or new symptoms Verbalized understanding and agreed with treatment plan (3) Depression: Code(s): F32.A - Depression, unspecified Plan: As above Orders: Orders Comprehensive Finger. Panel Fast Today E07.9 - Disorder of thyroid, unspecified Lipid Panel Today E07.9 - Disorder of thyroid, unspecified TSH reflex Free T4 Today E07.9 - Disorder of thyroid, unspecified UA CC w/rflx Micro + Cult Today E07.9 - Disorder of thyroid, unspecified US thyroid Today E04.9 - Nontoxic goiter, unspecified Thyroid Peroxidase Antibodies Today E04.9 - Nontoxic goiter, unspecified Complete Blood Count Auto Diff Today E07.9 - Disorder of thyroid, unspecified Coding Level of Care Code Est Pt Level 4 (06128) Diagnoses Enlarged thyroid E04.9 Anxiety F41.9 Depression F32.A
[2023-11-15 17:09] VITALS: BP 126/70; PULSE 116; RESP 13; TEMP 36.6; O2SAT 99; BMI 24.0
[2023-11-15 17:31] VITALS: PULSE 96
== END 2023-11-15 17:36 | disposition home or self-care (01) ==
PROVIDERS: Visit Provider Nurse Practitioner Family
DX: E04.9 Nontoxic goiter, unspecified (principal); F41.9 Anxiety disorder, unspecified; F32.A Depression, unspecified
CPT/HCPCS: 99214

== ENCOUNTER 2023-11-25 09:24 | Outpatient (REF) | payer OTHER, SELFPAY ==
--- NOTE | ~2023-11-25 | US_ITS ---
EXAMINATION: US THYROID CLINICAL INFORMATION: Nontoxic goiter, unspecified. COMPARISON: None available. TECHNIQUE: Linear transducer grayscale and color Doppler examination with attention to the region of the thyroid. FINDINGS: SIZE: Measurements of the thyroid lobes and nodules are given in sagittal, anteroposterior and transverse dimensions respectively. Right Thyroid Lobe: 6.72 x 2.59 x 2.44 cm, volume 22.2 mL. Parenchyma: The gland echotexture is heterogeneous. Thyroid vascularity is increased. Left Thyroid Lobe: 6.46 x 2.32 x 2.65 cm, volume 20.8 mL. Parenchyma: The gland echotexture is heterogeneous. Thyroid vascularity is increased. Isthmus: 0.73 cm in maximum AP dimension. No focal thyroid nodule is seen. NODES: No lymphadenopathy is seen in the tissue surrounding the thyroid gland. US/US thyroid IMPRESSION: Enlarged heterogeneous vascular thyroid gland without a focal nodule. No follow-up imaging is recommended. ACR TI-RADS RECOMMENDATION REFERENCE: Ultrasound-guided fine-needle aspiration, followup ultrasound, no further follow up. * TR1 (0 point) and TR2 (2 points): No FNA or follow up. * TR3 (3 points): FNA if more than or equal to 2.5 cm in maximum dimension, followup ultrasound in 1, 3 and 5 years if 1.5 to 2.4 cm in maximum dimension. * TR4 (4-6 points): FNA if more than or equal to 1.5 cm in maximum dimension, followup ultrasound in 1, 2, 3 and 5 years if 1 to 1.4 cm in maximum dimension. * TR5 (more than or equal to 7 points): FNA if more than or equal to 1 cm in maximum dimension, followup ultrasound every year for 5 years if 0.5 to 0.9 cm in maximum dimension. * TR3, TR4 or TR5 nodules that are below the size threshold for followup receive no follow up.
== END 2023-11-25 09:25 | disposition home or self-care (01) ==
LOC: HO.US 09:24
PROVIDERS: PCP Nurse Practitioner Family; Visit Provider Nurse Practitioner Family
DX: E04.9 Nontoxic goiter, unspecified (principal)
CPT/HCPCS: 76536

== ENCOUNTER 2023-12-07 15:14 | Outpatient (AMB) | payer OTHER, SELFPAY ==
[2023-12-07 15:18] VITALS: BP 122/70; PULSE 106; RESP 13; TEMP 36.3; O2SAT 99; BMI 24.3
--- NOTE | 2023-12-07 15:18 | A.OFFPC_ITS ---
Vital Signs 12/07/23 15:18 Height 5 ft 4 in Weight 141 lb 8 oz BMI 24.3 BP 122/70 Blood Pressure Location Rt brachial Position Sitting Respiration 13 Pulse 106 H Pulse Source Pulse Oximeter Temp 97.4 F Temp Source Temporal Artery Scan Pulse Oximetry (%) 99 Oxygen Delivery Method Room Air Intake Visit Reasons: discuss ultrasound results Vocational Rehabilitation Consultant Required: No Accompanied by: Self / Same As Patient Allergies latex Allergy (Verified 12/07/23 16:01) Rash Medication List - Last Reconciled 12/07/23 by Mackenzie Newton CNP No Known Home Meds Tobacco use date assessed: 11/15/23 Dental Screening Dental Screen Date: 12/07/23 Did you have a dental visit in the last 12 months?: Yes Did you have a dental problem in the last 6 months where you did not have access to dental care?: No Was dental information given to patient?: Patient has dentist HPI HPI Comments History of Present Illness Details 23-year-old female presents for enlarged thyroid follow-up She was last evaluated on 11/15/2023. Thyroid ultrasound and labs were ordered. She has not gotten blood work done that were prescribed by her PCP She notes that she was evaluated at [facility] ED in [facility] earlier this month for her thyroid and was prescribed a medication which she has been taking. She does not recall the medication name. She notes she also had blood work done in the ED She reports generalized itching since her thyroid got enlarged. She has not taking any medication for her itching. 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 Kashif Wiseman, Gabriella Ugalde, Shay Edouard and colleagues, with an educational isaias from [employer]. Review of Systems Const Details: Const Denies chills, Denies fatigue, Denies fever(s), Denies headache(s) and Denies weakness ENT Denies dizziness and Denies headache(s) Card Denies chest pain, Denies lightheadedness, Denies dyspnea and Denies other (Palpitations) Resp Denies cough, Denies dyspnea, Denies wheezing and Denies other ( shortness of breath) GI Denies abdominal pain, Denies melena, Denies hematochezia, Denies change in bowel habits, Denies dyspepsia and Denies nausea Denies hematuria and Denies dysuria Musc Denies abnormal gait, Denies myalgias, Denies arthralgias, Denies numbness and Denies tingling Skin/Breast Reports as per HPI Neuro Denies abnormal gait, Denies dizziness, Denies headache(s), Denies memory loss, Denies numbness, Denies Sensory deficit (Neuro), Denies tingling and Denies weakness Psych Denies anxiety, Denies depression, Denies memory loss Endo Denies cold intolerance, Denies fatigue, Denies heat intolerance, Denies polydipsia and Denies polyuria Aller/Immun Denies wheezing Physical exam (Primary Care) Vital Signs: Last Vital Signs Temp 97.4 F 12/07/23 15:18 Pulse 106 H 12/07/23 15:18 Resp 13 12/07/23 15:18 BP 122/70 12/07/23 15:18 Pulse Ox 99 12/07/23 15:18 Oxygen Delivery Method Room Air 12/07/23 15:18 BMI result Body Mass Index 24.3 Tobacco/Smoking Status: Tobacco use Status Tobacco use date assessed 11/15/23 12/07/23 15:24 Patient Tobacco Use Status Never used Tobacco 12/07/23 15:24 e-Cigarette/Vaping Use Never Used 12/07/23 15:24 Thrive Assessment: Date of Thrive Assessment Date Thrive assessed 12/23/22 12/07/23 15:24 Const Other: General: no acute distress and well developed Nutritional Appearance: well nourished Orientation/consciousness: patient oriented x3 [facility] Head: Yes normocephalic and Yes atraumatic Eyes General: appearance normal, both eyes and all related structures Pupils: Equal, round and reactive pupils present EOM: EOMs intact bilaterally Resp Effort & Inspection: normal respiratory effort Auscultation: clear to auscultation bilaterally Cardio Rate: regular rate Rhythm: regular rhythm Heart sounds: S1 normal heart sound present, S2 normal heart sound present, no gallops, no murmurs and no rubs GI Palpation (GI): No Abdominal aortic bruit present, Soft to palpation, nontender, No hepatosplenomegaly present and No Rebound tenderness present Auscultation: normal bowel sounds General: Yes no CVA tenderness Back/Spine/Pelvis Back: no CVA tenderness Cervical Spine: cervical ROM normal and No Cervical spine tenderness Thoracic/Lumbar Spine: thoraco-lumbar ROM normal, No pain with thoraco-lumbar ROM, No thoracic spinal tenderness and No lumbar spinal tenderness Extrem General: Yes normal to inspection, No edema and No calf tenderness Skin General: warm and dry. Normal skin color. Normal skin turgor Lesions: no lesions Rashes: macular papular rash to neck, pack, torso Trauma: no lacerations or abrasions Wounds: no wounds Nails: normal Neuro General: patient oriented x3, gait normal and no focal neuro deficit Cranial nerves: Yes Equal, round and reactive pupils present Cognition (Neuro): normal cognition Gait exam (Neuro): Normal gait present Sensory Exam: No Sensory deficit (Neuro) Psych Appearance: grossly normal Affect: normal affect Attitude: cooperative Thought process: Normal thought process present Assessment and Plan Assessment & Plan (1) Enlarged thyroid: Code(s): E04.9 - Nontoxic goiter, unspecified Plan: Recent thyroid ultrasound results reviewed with the patient IMPRESSION: Enlarged heterogeneous vascular thyroid gland without a focal nodule. No follow-up imaging is recommended Continue with current treatment regimen Advised to follow-up with primary care after she relocates to [place] Return with worsening or new symptoms Verbalized understanding and agreed with treatment plan (2) Generalized pruritus: Code(s): L29.9 - Pruritus, unspecified Plan: Generalized itching May be related to thyroid disease Continue current treatment Take Benadryl as needed Follow-up with worsening or new symptoms Verbalized understanding and agreed with treatment plan Coding Level of Care Code Est Pt Level 3 (81153) Diagnoses Enlarged thyroid E04.9 Generalized pruritus L29.9
== END 2023-12-07 16:11 | disposition home or self-care (01) ==
PROVIDERS: PCP Nurse Practitioner Family; Visit Provider Nurse Practitioner Family
DX: E04.9 Nontoxic goiter, unspecified (principal); L29.9 Pruritus, unspecified
CPT/HCPCS: 99213

== ENCOUNTER 2023-12-08 00:25 | Emergency (ER) | payer OTHER, SELFPAY ==
[2023-12-08 01:09] VITALS: BP 133/75; PULSE 95; RESP 18; TEMP 37.1; O2SAT 98; BMI 24.3
--- NOTE | 2023-12-08 01:26 | ED_ITS ---
HPI - Allergic Reaction General Chief complaint: Allergic Reaction Stated complaint: rash, side effect to meds Time Seen by Provider: 12/08/23 01:20 Source: patient Mode of arrival: ambulatory Limitations: no limitations History of Present Illness HPI narrative: Patient history of hyperthyroidism started on methimazole on 11/16 since yesterday patient noticed itching and rash all over the body taking Benadryl wit hout much relief no other new medication Related Data Previous Rx's Medication Instructions Recorded diphenhydramine HCl 25 mg capsule 50 mg (2 x 25 mg) PO Q6-8H PRN 12/08/23 (Benadryl) allergic reaction #30 caps prednisone 20 mg tablet 40 mg (2 x 20 mg) PO DAILY #10 tabs 12/08/23 Allergies Allergy/AdvReac Type Severity Reaction Status Date / Time latex Allergy Rash Verified 12/07/23 16:01 Methimazole Allergy Intermediate Itching Uncoded 12/08/23 01:33 Review of Systems Review of Systems: Yes all other systems are reviewed and are negative PMFSH Past Medical History Medical History Depression Anxiety Vertigo Surgical History Hx of tonsillectomy Family History Family History Paternal Grandfather Diabetes Mother Premature menopause Social History Social History Household Members: Family Housing: Apartment Alcohol intake: never Patient Tobacco Use Status: Never used Tobacco e-Cigarette/Vaping Use: Never Used service: No Current occupational status: employed 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 Oriented X3. No acute distress. ENT: Pharynx normal. Oral Mucosa moist Neck: Normal inspection. Neck supple. CVS: Normal heart rate and rhythm. Pulses normal. Respiratory: No respiratory distress. Equal air entry bilateral, no wheezing/rales/rhonchi Abdomen: Soft and nontender. Bowel sounds are present, Skin: Skin warm and dry. Normal skin color. Maculopapular rash all over the body Neuro: Oriented X 3. Medical Decision Making Medical Decision Making [facility] Narrative: Patient with drug rash likely from methimazole advised to stop taking methimazole and follow with PCP Discharge Plan Discharge Clinical Impression: Allergic reaction caused by a drug Patient Disposition: Home, Self-Care Instructions: General Allergic Reaction (ED) Additional Instructions: Likely have allergic reaction to methimazole Stop methimazole Benadryl 1-2 tablets every 6 hours as needed Prednisone as prescribed Follow-up with your PCP Prescriptions: New diphenhydramine HCl [Benadryl] 25 mg capsule 50 mg PO Q6-8H PRN (Reason: allergic reaction) Qty: 30 0RF prednisone 20 mg tablet 40 mg PO DAILY Qty: 10 0RF
[2023-12-08] MEDS: Famotidine 20 MG TABLET PO (01:40)
[2023-12-08] MEDS: dexAMETHasone 2 MG TABLET 10 MG PO (01:40)
[2023-12-08] MEDS: hydrOXYzine HCL 50 MG TABLET PO (01:40)
--- OUTSIDE RECORDS SUMMARY | 2023-12-08 01:41 | XMS_ITS | Continuity of Care Document ---
Author Name Unknown Organization [facility] ter Address [address] [place] [id number]- Care Team Providers Care Crowd Controller Name Role Phone Not on Staff, PCP Primary Care Physician Unavail able Encounter [facility] Date(s): 08/11/22 - 08/11/[address] [address]- Discharge Disposition: A-D/C Walkout Attending Physician: Not on Staff, Attending MD Admitting Physician: Not on Staff, Admitting MD Referring Physician: Not on Staff, Referring MD Allergies, Adverse Reactions, Alerts No Known Allergies Vital Signs Most recent to oldest [Reference Range]: 1 Oxygen Saturation [94-100 %] 96 % (08/11/22 2:51 AM) Pulse Rate [55-90 bpm] 110 bpm *H* (08/11/22 2:51 AM) Blood Pressure [90-138/55-84 mm Hg] 127/ 72mm Hg (08/11/22 2:51 AM) Respiratory Rate [16-30 br/min] 19 br/mi n (08/11/22 2:51 AM) Temperature [96.8-100.4 DegF] 98.2 DegF (08/11/22 2:51 AM) Mode of Delivery (Oxygen) Room air (08/11/22 2:51 AM) Blood pressure sites Arm, left (08/11/22 2:51 AM) Temperature Route Oral (08/11/22 2:51 AM) Patient Care team information Personnel Name: Not on Staff, PCP
--- OUTSIDE RECORDS SUMMARY | 2023-12-08 01:41 | XMS_ITS | Continuity of Care Document ---
Author Name Unknown Organization [facility] er Address [address] [place] [id number]- Care Team Providers Care Radio Program Checker Name Role Phone Not on Staff, PCP Primary Care Physician Unavail able Encounter [facility] Date(s): 02/13/22 - 03/15/[address] [id number] Attending Physician: Kwesi Contreras Admitting Physician: Admtr, Ar8 Referring Physician: Admtr, Ar8 Allergies, Adverse Reactions, Alerts No Known Allergies
--- OUTSIDE RECORDS SUMMARY | 2023-12-08 01:41 | XMS_ITS | Continuity of Care Document ---
Author Name Unknown Organization [facility] ter Address [address] [place] [id number]- Care Team Providers Care Waxing Machine Operator Name Role Phone Not on Staff, PCP Primary Care Physician Unavail able Encounter [facility] Date(s): 09/02/22 - 09/02/[address] [address]- Discharge Disposition: A-D/C Walkout Attending Physician: Not on Staff, Attending MD Admitting Physician: Not on Staff, Admitting MD Referring Physician: Not on Staff, Referring MD Allergies, Adverse Reactions, Alerts No Known Allergies Medications No Known Medications Vital Signs Most recent to oldest [Reference Range]: 1 Oxygen Saturation [94-100 %] 100 % (09/02/22 3:04 PM) Pulse Rate [55-90 bpm] 106 bpm *H* (09/02/22 3:04 PM) Blood Pressure [90-138/55-84 mm Hg] 116/ 73mm Hg (09/02/22 3:04 PM) Respiratory Rate [16-30 br/min] 18 br/mi n (09/02/22 3:04 PM) Temperature [96.8-100.4 DegF] 98.5 DegF (09/02/22 3:04 PM) Mode of Delivery (Oxygen) Room air (09/02/22 3:04 PM) Temperature Route Oral (09/02/22 3:04 PM) Patient Care team information Personnel Name: Not on Staff, PCP
== END 2023-12-08 01:44 | disposition home or self-care (01) ==
PROVIDERS: Emergency Provider Internal Medicine; PCP Student in an Organized Health Care Education/Training Program
DX: R21 Rash and other nonspecific skin eruption (principal); T38.2X5A Adverse effect of antithyroid drugs, initial encounter; Y92.9 Unspecified place or not applicable
CPT/HCPCS: 99282; 99283; J8540